=== PATIENT | female | born 1995 | race Caucasian/White ===

== ENCOUNTER 2019-11-11 21:47 | Emergency (ER) | payer BC ==
[~2019-11-11] VITALS: Ht 165.1 cm; Wt 54.4 kg
--- NOTE | 2019-11-11 21:58 | NUR ---
ED Nurse Note: Patient walked into the ED with c/o vaginal bleed onset 35 days ago after IUD insertion. Patient stated that vaginal bleed is accompanied by cramping and lower abdominal pain. Patient states bleeding got worse after intercourse today. Patient is AAOx4 and ambulatory. BP at 108/66. Placed on monitor bed.
--- NOTE | 2019-11-11 22:05 | NUR ---
ED Nurse Note: ERMD at bedside. Urine specimen sent.
[2019-11-11 22:12] VITALS: BP 108/66
[2019-11-11 22:43] LABS: APPEARANCE,URINE CLEAR; BILIRUBIN, URINE NEGATIVE (NEGATIVE); COLOR,URINE PALE YELLOW; GLUCOSE, URINE (UA) NEGATIVE (NEGATIVE); KETONES,URINE NEGATIVE (NEGATIVE); LEUKOCYTE ESTERASE ,URINE NEGATIVE (NEGATIVE); NITRITE,URINE NEGATIVE (NEGATIVE); PH,URINE 6 (4.5-8.0); PROTEIN,URINE NEGATIVE (NEGATIVE); UROBILINOGEN,URINE NORMAL MG/DL (0.0-1.0)
--- NOTE | 2019-11-11 23:00 | NUR ---
ED Nurse Note: Pelvic exam done by SWETA
--- NOTE | 2019-11-11 23:20 | Emergency Room Report ---
History of Present Illness General Chief Complaint: Vaginal Source: Patient Present Illness HPI Disclaimer: Please note that this report is being documented using DRAGON technology. This can lead to erroneous entry secondary to incorrect interpretation by the dictating instrument. HPI: 24-year-old female presents for pelvic cramping. She reports that she has had an IUD in for the past 4 months and over the last month she has had intermittent vaginal spotting. Worse after intercourse today. She is requesting IUD removal. She states she uses about 1 pad a day. No fevers no vaginal discharge. PMH: PSH: Reviewed Social Hx: Allergies: Coded Allergies: CEFPROZIL (Verified Allergy, Unknown, 11/11/19) COVID-19 Screening Contact w/high risk pt: No Experienced COVID-19 symptoms?: No COVID-19 Testing performed OWNER/OPERATOR: No Patient History Last Menstrual Period: IUD Now: No : 0 Para: 0 Reviewed Nursing Documentation: PMH: Agreed; PSxH: Agreed Nursing Documentation-PMH Past Medical History: No Stated History History Of Psychiatric Problem: Yes - BIPOLAR Review of Systems All Other Systems: negative except mentioned in HPI Physical Exam Vital Signs Date Time Temp Pulse Resp B/P (MAP) Pulse Ox O2 Delivery O2 Flow Rate FiO2 11/11/19 21:50 98.4 87 20 108/66 (80) 99 Room Air Sp02 EP Interpretation: reviewed, normal General Appearance: well appearing, no apparent distress Head: normocephalic, atraumatic Eyes: bilateral eye PERRL, bilateral eye EOMI ENT: hearing grossly normal, moist mucus membranes Neck: full range of motion, supple Respiratory: lungs clear, normal breath sounds, no rhonchi, no respiratory distress, no retraction, no wheezing Cardiovascular #1: normal peripheral pulses, regular rate, rhythm, no murmur Gastrointestinal: non tender, soft, non-distended, no guarding Genitourinary: other - No cervical motion tenderness, IUD in place, no vaginal bleeding noted, no cervical discharge Neurologic: alert, oriented x3, no focal defects Skin: normal color, warm/dry Procedures Additional Procedure Procedure Narrative IUD removal Verbal consent obtained indication was abdominal cramping. Using ring forceps patient's IUD was removed by me. Patient tolerated procedure well without complication. Medical Decision Making Diagnostic Impression: Primary Impression: Encounter for IUD removal Additional Impression: Abdominal cramping ER Course Patient presented requesting IUD removal. She has had placement confirmed previously. She had no active bleeding IUD was removed without complication by me. Patient requested oral contraceptives which was provided. She was placed back on her previous oral contraceptive. In the ER. test was negative. Low suspicion for emergent pathology. Patient instructed to follow- up with her [employer] this week. Last Vital Signs Date Time Temp Pulse Resp B/P (MAP) Pulse Ox O2 Delivery O2 Flow Rate FiO2 11/11/19 22:12 98.4 82 20 108/66 99 Room Air Disposition: HOME, SELF-CARE Condition: Improved Scripts Ethinyl Estradiol/Drospirenone (SHANNAN 28 TABLET) 1 Each Tablet 1 TAB ORAL DAILY for 30 Days, MG 0 Refills Prov: Uri Black M.D. 11/11/19 Referrals: NON PHYSICIAN (PCP) Uri Black M.D. Nov 11, 2019 23:20
[2019-11-11] MEDS ORDERED: YAZ 28 TABLET1 EACH ORAL (23:22)
[2019-11-11] MEDS ORDERED: YASMIN 28 TABL1 EACH ORAL (23:34)
[2019-11-11 23:38] VITALS: BP 124/75
--- NOTE | 2019-11-11 23:38 | NUR ---
ER DISCHARGE NOTE: Patient is cleared to be discharged per ERMD, pt is aox4, on room air, with stable vital signs. pt was given dc and prescription instructions, pt was able to verbalize understanding, pt id band removed. pt is able to ambulate with steady gait. pt took all belongings.
== END 2019-11-11 23:39 | disposition home or self-care (01) ==
LOC: EMR 22:22
DX: R10.9 Unspecified abdominal pain (principal); Z30.432 Encounter for removal of intrauterine contraceptive device; F31.9 Bipolar disorder, unspecified
CPT/HCPCS: 81003; 81025; 99283